=== PATIENT | female | born 1995 | race Caucasian/White ===

== ENCOUNTER → 2018-07-04 | Day surgery (SDC) | payer OTHER ==
[~2018-07-04] MED LIST: IV RINGERS,LACTATED 1000ML 1,000 ML IV SCH; PROPOFOL 40 ML IV ONE
[2018-07-04 17:50] VITALS: BP 93/55
--- NOTE | 2018-07-05 02:28 | HP ---
ADMIT DATE: 07/04/2018 REASON FOR THE PRESENTATION: Dysphagia. HISTORY OF PRESENT ILLNESS: A 22-year-old female whose past medical history is significant for dysphagia, seen with recurrent symptoms. She has minimal heartburn at this time. Does use caffeine, but does not use nicotine or alcohol. Has risk factors for reflux. Urxp-lzb-pyaivcu remedies have been utilized for control of her symptoms. With continued issues and occasional emesis, she requests additional evaluation. PAST MEDICAL HISTORY: Dysphagia and GERD. ALLERGIES: None. MEDICATIONS: None. SOCIAL HISTORY: Nonsmoker, nondrinker. FAMILY HISTORY: Noncontributory. REVIEW OF SYSTEMS: Per records. PHYSICAL EXAMINATION: GENERAL: Reveals a well-nourished, well-developed female who is alert and cooperative, in no acute distress. VITAL SIGNS: Pulse is 80, respiratory rate is 15. HEENT EXAMINATION: Reveals normocephalic and atraumatic head. Pupils and extraocular muscles are not tested. Sclerae anicteric. NECK: Supple. LUNGS: Clear. CARDIOVASCULAR EXAMINATION: Reveals S1, S2, without S3, S4 or appreciable murmur. ABDOMEN: Exam reveals soft abdomen. Normal bowel sounds, without appreciable hepatosplenomegaly. EXTREMITIES: Exam reveals no cyanosis, clubbing or edema. IMPRESSION: Dysphagia, etiology is to be determined. Differential includes Schatzki ring, achalasia, Shaver's, presbyesophagus, Zenker's diverticulum and/or eosinophilic esophagitis. Therefore, we recommended upper endoscopy with possible biopsy and/or dilatation. Risks and benefits, including risk of hemorrhage and perforation, have been discussed with the patient, who is willing to proceed at this time. MABLE KURTZ MD DR: SAMINA/gregoria JOB#: [id number] / [id number]
== END | disposition home or self-care (01) ==
LOC: SURG 16:09
PROVIDERS: ATTEND Internal Medicine Gastroenterology
DX: K22.2 Esophageal obstruction (principal); K29.50 Unspecified chronic gastritis without bleeding; K21.9 Gastro-esophageal reflux disease without esophagitis; Z79.899 Other long term (current) drug therapy; Z87.19 Personal history of other diseases of the digestive system; Z90.49 Acquired absence of other specified parts of digestive tract
CPT/HCPCS: 36415; 43235; 43450; 84702; J2704

== ENCOUNTER 2019-02-21 18:46 | Observation (INO) | payer MEDICAID ==
[2018-07-04 17:50] VITALS: BP 93/55
[2019-02-21] MEDS ORDERED: ACETAMINOPHEN 325 MG TABLET. PO PRN (19:30)
[2019-02-21] MEDS ORDERED: IV RINGERS,LACTATED 1000ML 1,000 ML IV PRN (19:30)
[2019-02-21 19:50] LABS: BASO % 0 % (0-3); EOS # 0.2 x10^3/uL (0.0-0.7); EOS % 2 % (0-3); HEMATOCRIT 35.7 % (36.0-47.0); HEMOGLOBIN 12.6 g/dL (12.0-15.5); LYMPH # 1.3 x10^3/uL (1.0-4.8); LYMPH % 14 % (24-48); MEAN CORPUSCULAR HEMOGLOBIN 32 pg (25-35); MEAN CORPUSCULAR HGB CONC 35 g/dL (31-37); MEAN CORPUSCULAR VOLUME 91 fL (79-100); MONO # 0.4 x10^3/uL (0.0-1.1); MONO % 4 % (0-9); NEUT # 7.5 x10^3/uL (1.8-7.7); NEUT % 79 % (31-73); PLATELET COUNT 207 x10^3/uL (140-400); RED BLOOD COUNT 3.94 x10^6/uL (3.50-5.40); RED CELL DISTRIBUTION WIDTH 12.8 % (11.5-14.5); WHITE BLOOD COUNT 9.4 x10^3/uL (4.0-11.0)
[2019-02-21 21:05] LABS: BILIRUBIN,URINE NEGATIVE (NEG); CLARITY,URINE CLEAR; COLOR,URINE YELLOW; NITRITE,URINE NEGATIVE (NEG); PROTEIN,URINE NEGATIVE (NEG-TRACE)
[2019-02-21 21:12] LABS: BACTERIA,URINE MANY /HPF (0-FEW); BARBITURATES NEG (NEG); BENZODIAZEPINES NEG (NEG); CANNABINOIDS NEG (NEG); COCAINE NEG (NEG); METHADONE NEG (NEG); OPIATES NEG (NEG); PHENCYCLIDINE NEG (NEG); RBC,URINE 0 /HPF (0-2); SQUAMOUS EPITHELIAL CELL,UR MANY /LPF; WBC,URINE 20-40 /HPF (0-4)
[2019-02-21 21:21] LABS: AMPHETAMINE/METHAMPHETAMINE NEG (NEG)
== END 2019-02-21 21:45 | disposition home or self-care (01) ==
LOC: 3 NORTH 18:46 → 3 SO LND 19:20
PROVIDERS: ADMIT Obstetrics & Gynecology; ATTEND Obstetrics & Gynecology
DX: O26.892 Other specified pregnancy related conditions, second trimester (principal); R07.81 Pleurodynia; Z3A.21 21 weeks gestation of pregnancy
CPT/HCPCS: 36415; 80307; 81001; 82947; 85025; 87086; G0378; G0379; J7120; 87186

== ENCOUNTER 2019-04-24 19:43 | Observation (INO) | payer MEDICAID ==
[2018-07-04 17:50] VITALS: BP 93/55
[2019-04-24] MEDS ORDERED: IV RINGERS,LACTATED 1000ML 1,000 ML IV SCH (19:47)
[2019-04-24 20:13] LABS: BILIRUBIN,URINE SMALL (NEG); CLARITY,URINE CLEAR; COLOR,URINE AMBER; NITRITE,URINE POSITIVE (NEG); PH,URINE 6.5; PROTEIN,URINE NEGATIVE (NEG-TRACE); UROBILINOGEN,URINE >=8.0 mg/dL (0.2 mg/dL)
[2019-04-24 20:17] LABS: BARBITURATES NEG (NEG); BENZODIAZEPINES NEG (NEG); CANNABINOIDS NEG (NEG); COCAINE NEG (NEG); METHADONE NEG (NEG); OPIATES NEG (NEG); PHENCYCLIDINE NEG (NEG)
[2019-04-24 20:18] LABS: AMPHETAMINE/METHAMPHETAMINE NEG (NEG)
[2019-04-24 20:27] LABS: BACTERIA,URINE MANY /HPF (0-FEW); SQUAMOUS EPITHELIAL CELL,UR FEW /LPF; WBC,URINE TNTC /HPF (0-4)
[2019-04-24] MEDS ORDERED: ONDANSETRON PF 4 MG/2 ML VIAL. IVP PRN (21:30)
[2019-04-24] MEDS ORDERED: hydrOXYzine IM 50 MG/ML VIAL IM ONE (21:45)
== END 2019-04-25 01:39 | disposition home or self-care (01) ==
LOC: 3 SO LND 19:43
PROVIDERS: ADMIT Obstetrics & Gynecology; ATTEND Obstetrics & Gynecology
DX: O21.2 Late vomiting of pregnancy (principal); Z3A.30 30 weeks gestation of pregnancy
CPT/HCPCS: 80307; 81001; 87086; 87186; 96361; 96372; 96374; G0378; G0379; J2405; J3410; J7120